=== PATIENT | male | born 1955 | race Caucasian/White ===

== ENCOUNTER 2016-10-16 13:58 | Emergency (ER) | payer OTHER ==
[~2016-10-16] VITALS: Ht 177.8 cm; Wt 74.4 kg
[2016-10-16] MEDS ORDERED: SINEMET 25-1001 EAC1 ORAL (14:17)
[2016-10-16] MEDS ORDERED: DESCOVY 200-251 EACH PO (14:17)
[2016-10-16] MEDS ORDERED: ISENTRESS25 MG ORAL (14:17)
[2016-10-16] MEDS ORDERED: BUPROPION XL300 MG ORAL (14:17)
[2016-10-16] MEDS ORDERED: SINEMET 10-1001 EACH ORAL (14:17)
[2016-10-16] MEDS ORDERED: PRISTIQ ER50 MG PO (14:17)
[2016-10-16] MEDS ORDERED: KLONOPIN1 MG ORAL (14:18)
[2016-10-16] MEDS ORDERED: [UNRECOGNIZED DRUG - OTHER] ORAL (14:19)
--- NOTE | 2016-10-16 14:31 | Emergency Room Report ---
History of Present Illness General Chief Complaint: Upper Respiratory Illness Source: Medical Record Present Illness HPI The patient is a 60-year-old male presenting for sore throat, fevers, and myalgia. Symptoms have been present for the past 5 days with no improvement. The patient has been taking azithromycin for the past 3 days which were prescribed by his primary doctor. His primary doctor has asked him to come to the emergency department for further evaluation due to no improvement. The patient has a history of HIV and is actively being treated. The patient denies any other symptoms including chest pain, shortness of breath, wheezing, rash, neck pain or stiffness Allergies: Coded Allergies: No Known Allergies (Unverified , 10/16/16) Patient History Past Medical History: see triage record Pertinent Family History: none Reviewed Nursing Documentation: PMH: Agreed, PSxH: Agreed Nursing Documentation-PMH Past Medical History: No History, Except For Hx Neurological Problems: Yes - Parkinson disease Review of Systems All Other Systems: negative except mentioned in HPI Physical Exam Vital Signs Date Time Temp Pulse Resp B/P Pulse Ox O2 Delivery O2 Flow Rate FiO2 10/16/16 14:10 99.7 100 18 96/65 100 Room Air Sp02 EP Interpretation: reviewed, normal General Appearance: no apparent distress, alert, GCS 15, non-toxic Head: normocephalic, atraumatic Eyes: bilateral eye PERRL, bilateral eye normal inspection ENT: hearing grossly normal, normal pharynx, no angioedema, normal voice, uvula midline, moist mucus membranes Neck: full range of motion, supple/symm/no masses Respiratory: chest non-tender, lungs clear, normal breath sounds, speaking full sentences Cardiovascular #1: regular rate, rhythm, no edema Gastrointestinal: normal bowel sounds, non tender, soft, non-distended, no guarding, no rebound Musculoskeletal: back normal, gait/station normal, normal range of motion, non- tender Neurologic: alert, oriented x3, responsive, motor strength/tone normal, sensory intact, normal gait, speech normal Psychiatric: judgement/insight normal, memory normal, mood/affect normal, no suicidal/homicidal ideation Skin: normal color, no rash, warm/dry, well hydrated Lymphatic: no adenopathy Medical Decision Making PA Attestation Dr. Lynch is my supervising physician. Patient management was discussed with my supervising physician Diagnostic Impression: Primary Impression: Pharyngitis, acute Qualified Codes: J02.9 - Acute pharyngitis, unspecified ER Course The patient is a 60-year-old male presenting for sore throat, fevers, and myalgia URI differential PE: No apparent distress.Temperature is elevated but afebrile No TTP over maxillary or frontal sinuses. Lungs CTA bilat. No wheezing. No accessory muscle use. Heart: RRR, no abnormal heart sounds Ears: external auditory canal clear. Non erythematous. Bilat TM intact. Cone of light present bilat. No bulging of TM. No serous fluid seen. no nasal D/C No cervical lymphad No tonsillar exudate. Uvula midline.Oropharynx non erythematous CBC unremarkable. No leukocytosis CMP unremarkable BNP unremarkable Troponin is essentially negative Rapid strep and throat culture are taken. Results pending The patient is given IV Toradol and states that he is feeling much better. Temperature has decreased He'll be discharged home with a prescription for prednisone and will continue to take the azithromycin as was prescribed. He will follow up with his primary doctor and will call back for rapid strep and throat culture results ER precautions are given Laboratory Tests Test 10/16/16 15:09 White Blood Count 5.5 K/UL (4.8-10.8) Red Blood Count 5.11 M/UL (4.70-6.10) Hemoglobin 16.7 G/DL (14.2-18.0) Hematocrit 46.6 % (42.0-52.0) Mean Corpuscular Volume 91 FL (80-99) Mean Corpuscular Hemoglobin 32.7 PG (27.0-31.0) H Mean Corpuscular Hemoglobin Concent 35.9 G/DL (32.0-36.0) Red Cell Distribution Width 11.3 % (11.6-14.8) L Platelet Count 126 K/UL (150-450) L Mean Platelet Volume 9.6 FL (6.5-10.1) Neutrophils (%) (Auto) 67.8 % (45.0-75.0) Lymphocytes (%) (Auto) 20.5 % (20.0-45.0) Monocytes (%) (Auto) 10.3 % (1.0-10.0) H Eosinophils (%) (Auto) 0.6 % (0.0-3.0) Basophils (%) (Auto) 0.9 % (0.0-2.0) Sodium Level 141 mEQ/L (135-145) Potassium Level 4.1 mEQ/L (3.4-4.9) Chloride Level 102 mEQ/L (98-107) Carbon Dioxide Level 26 mEQ/L (20-30) Anion Gap 13 (5-15) Blood Urea Nitrogen 12 mg/dL (7-23) Creatinine 1.1 mg/dL (0.7-1.2) Estimate Glomerular Filtration Rate > 60 mL/min (>60) Glucose Level 84 mg/dL (74-106) Calcium Level 8.7 mg/dL (8.6-10.2) Total Bilirubin 0.6 mg/dL (0.0-1.2) Aspartate Amino Transferase (AST) 17 U/L (5-40) Alanine Aminotransferase (ALT) 5 U/L (3-41) Alkaline Phosphatase 72 U/L (40-129) Troponin I < 0.30 ng/mL (<=0.30) Pro-B-Type Natriuretic Peptide 58 pg/mL (0-125) Total Protein 6.5 g/dL (6.6-8.7) L Albumin 4.1 g/dL (3.5-5.2) Globulin 2.4 g/dL Albumin/Globulin Ratio 1.7 (1.0-2.7) Lab Results Impression CBC unremarkable. No leukocytosis CMP unremarkable BNP unremarkable Troponin is essentially negative EKG Diagnostic Results Rate: normal - 74 Rhythm: NSR ST Segments: no acute changes ASA given to the pt in ED: No PA Scribe Text EKG was reviewed and read with my supervising physician. No acute ST segment changes are seen. Normal rate and rhythm. No acute changes. Chest X-Ray Diagnostic Results EP Interpretation: Yes Findings: no consolidation, no effusion, no pneumothorax, no acute cardiopulmonary disease Number of Views: 1 PA Scribe Text I am acting as scribe for my supervising physician. My supervising physician's interpretation of the chest xrays are there is no consolidation, no effusion, no acute cardiopulmonary disease, no pneumothorax Last Vital Signs Date Time Temp Pulse Resp B/P Pulse Ox O2 Delivery O2 Flow Rate FiO2 10/16/16 14:10 99.7 100 18 96/65 100 Room Air Status: improved Disposition: HOME, SELF-CARE Condition: Improved Scripts Prednisone* (PREDNISONE*) 20 Mg Tablet 40 MG ORAL DAILY, #10 TAB Prov: LAVERNE CURRY 10/16/16 LAVERNE CURRY Oct 16, 2016 14:31
[2016-10-16] MEDS ORDERED: Ketorolac 30mg Inj IV ONE (14:45)
[2016-10-16 15:28] LABS: BASOPHILS % (AUTO) 0.9 % (0.0-2.0); EOSINOPHILS % (AUTO) 0.6 % (0.0-3.0); LYMPHOCYTES % (AUTO) 20.5 % (20.0-45.0); MEAN CORPUSCULAR HEMOGLOBIN 32.7 PG (27.0-31.0); MEAN CORPUSCULAR HGB CONC 35.9 G/DL (32.0-36.0); MEAN CORPUSCULAR VOLUME 91 FL (80-99); MEAN PLATELET VOLUME 9.6 FL (6.5-10.1); MONOCYTES % (AUTO) 10.3 % (1.0-10.0); NEUTROPHILS % (AUTO) 67.8 % (45.0-75.0); PLATELET COUNT 126 K/UL (150-450); RED BLOOD COUNT 5.11 M/UL (4.70-6.10); RED CELL DISTRIBUTION WIDTH 11.3 % (11.6-14.8); WHITE BLOOD COUNT 5.5 K/UL (4.8-10.8)
[2016-10-16 15:39] LABS: ANION GAP 13 (5-15); CARBON DIOXIDE 26 mEQ/L (20-30); CHLORIDE 102 mEQ/L (98-107); CREATININE 1.1 mg/dL (0.7-1.2); POTASSIUM 4.1 mEQ/L (3.4-4.9); SODIUM 141 mEQ/L (135-145)
[2016-10-16 15:40] LABS: ALANINE AMINOTRANSFERASE 5 U/L (3-41); ALBUMIN/GLOBULIN RATIO 1.7 (1.0-2.7); ASPARTATE AMINO TRANSFERASE 17 U/L (5-40); CALCIUM 8.7 mg/dL (8.6-10.2); GLOMERULAR FILTRATION RATE > 60 mL/min (>60); HEMOLYSIS 12; TOTAL PROTEIN 6.5 g/dL (6.6-8.7)
[2016-10-16 16:43] LABS: TROPONIN I < 0.30 ng/mL (<=0.30)
[2016-10-16] MEDS ORDERED: PREDNISONE20 MG ORAL (16:44)
[2016-10-16 16:54] VITALS: BP 99/66
--- NOTE | 2016-10-17 09:47 | Diagnostic Imaging Report ---
Indication: PAIN. Technique: XRAY CHEST 1 V. Comparison: None Findings: The heart is normal in size. The lungs are clear. No pleural fluid. There is atherosclerotic change of the aorta. The bones are unremarkable. Impression: Atherosclerotic change. Otherwise negative chest.
--- NOTE | 2016-10-18 09:06 | Diagnostic Imaging Report ---
Indication: PAIN Technique: XRAY ABDOMEN 1VIEW/KUB Comparison: None. Findings: The bowel gas pattern is nonobstructive. The bones are unremarkable. There is no gross free fluid. No gross free air is noted either. The remainder the exam is unremarkable. Impression: Negative examination of the abdomen.
--- NOTE | 2016-10-20 00:27 | Cardiology Report ---
APPROVED REPORT EKG Measurement Heart [id number] ID [id number] Normal sinus rhythm Normal ECG
== END 2016-10-16 16:55 | disposition home or self-care (01) ==
LOC: EMR 14:34
DX: J02.9 Acute pharyngitis, unspecified (principal); G20 Parkinson's disease
CPT/HCPCS: 36415; 71010; 74000; 80053; 83880; 84484; 85025; 87070; 93005; 96360; 96361; 96374; 99284; J1885